=== PATIENT | female | born 2000 | race Two or more races ===

== ENCOUNTER 2022-11-28 02:15 | Outpatient (CLI) | payer OTHER ==
[2022-11-28] MEDS ORDERED: PRENATAL TABLE1 EAC4 PO (02:27)
== END 2022-11-28 08:36 | disposition home or self-care (01) ==
LOC: OBS/DEL 02:15
PROVIDERS: ATTEND Obstetrics & Gynecology
DX: O46.8X2 Other antepartum hemorrhage, second trimester (principal); Z3A.21 21 weeks gestation of pregnancy

== ENCOUNTER 2023-01-26 18:20 | Outpatient (CLI) | payer OTHER ==
[~2023-01-26 18:20] MED LIST: PRENATAL TABLE1 EAC4 PO
== END 2023-01-27 13:59 | disposition home or self-care (01) ==
LOC: OBS/DEL 18:20
PROVIDERS: ATTEND Obstetrics & Gynecology
DX: O26.893 Other specified pregnancy related conditions, third trimester (principal); O99.013 Anemia complicating pregnancy, third trimester; Z3A.29 29 weeks gestation of pregnancy; Z20.822 Contact with and (suspected) exposure to COVID-19

== ENCOUNTER 2023-03-01 14:36 | Outpatient (CLI) | payer OTHER | END 2023-03-01 16:57 | disposition home or self-care (01) | LOC: PRENATAL 14:36 | PROVIDERS: ATTEND Obstetrics & Gynecology Maternal & Fetal Medicine | DX: O26.849 Uterine size-date discrepancy, unspecified trimester (principal); O14.90 Unspecified pre-eclampsia, unspecified trimester; O36.5990 Maternal care for other known or suspected poor fetal growth, unspecified trimester, not applicable or unspecified; Z3A.34 34 weeks gestation of pregnancy ==

== ENCOUNTER 2023-03-12 18:01 | Outpatient (CLI) | payer OTHER ==
[2023-03-12 18:38] LABS: PH,URINE 6.5 (5.0-8.0); URINE APPEARANCE Clear; URINE BILIRRUBIN Negative (NEGATIVE); URINE BLOOD Negative; URINE COLOR Yellow; URINE LEUKOCYTE Trace; URINE NITRATE Negative; URINE PROTEIN Trace (NEGATIVE)
[2023-03-12 18:39] LABS: HEMOGLOBIN 10.6 g/dL (12.0-15.00); MEAN CELL VOLUME 84.3 fL (80.00-100.00); MEAN CORPUSCULAR HEMOGLOBIN 27.9 pg (27.00-32.0); MEAN CORPUSCULAR HGB CONC 33.1 g/dl (32.0-36.0); PLATELET COUNT 416 K/uL (150-450); RED CELL DISTRIBUTION WIDTH 14.5 % (11.5-14.5)
[2023-03-12 18:41] LABS: URINE BACTERIA 545.4 uL (0.0-1933); URINE EPITHELIAL CELLS 17.9 uL (0.0-38.8); URINE RBC 2.8 uL (0.0-20.8); URINE WBC 47.4 uL (0.0-23.2)
[2023-03-12 18:45] LABS: URINE GLUCOSE 500 MG/DL (NEGATIVE)
== END 2023-03-13 15:12 | disposition home or self-care (01) ==
LOC: OBS/DEL 18:01
PROVIDERS: ATTEND Obstetrics & Gynecology
DX: O23.33 Infections of other parts of urinary tract in pregnancy, third trimester (principal); N39.0 Urinary tract infection, site not specified; Z3A.36 36 weeks gestation of pregnancy; Z20.822 Contact with and (suspected) exposure to COVID-19

== ENCOUNTER 2023-04-01 18:23 | Inpatient (IN) | payer OTHER ==
[~2023-04-01] VITALS: Ht 154.9 cm; Wt 54.0 kg
[2023-04-01 19:17] LABS: URINE APPEARANCE Clear; URINE BILIRRUBIN Negative (NEGATIVE); URINE BLOOD Negative; URINE COLOR Yellow; URINE GLUCOSE Negative (NEGATIVE); URINE LEUKOCYTE Negative; URINE NITRATE Negative; URINE PROTEIN Negative (NEGATIVE); URINE UROBILINOGEN 0.2 E.U./dl
[2023-04-01 19:18] LABS: HEMATOCRIT 32.3 % (36.0-45.00); HEMOGLOBIN 10.6 g/dL (12.0-15.00); MEAN CELL VOLUME 83.7 fL (80.00-100.00); MEAN CORPUSCULAR HEMOGLOBIN 27.5 pg (27.00-32.0); MEAN CORPUSCULAR HGB CONC 32.8 g/dl (32.0-36.0); PLATELET COUNT 394 K/uL (150-450); RED BLOOD COUNT 3.86 M/uL (4.00-6.00)
[2023-04-01 19:20] LABS: URINE BACTERIA 248.1 uL (0.0-1933); URINE EPITHELIAL CELLS 17.6 uL (0.0-38.8); URINE WBC 12.6 uL (0.0-23.2)
[2023-04-01 19:24] LABS: URINE RBC 0.5 uL (0.0-20.8)
[2023-04-02 06:51] LABS: HEMATOCRIT 31.3 % (36.0-45.00); MEAN CELL VOLUME 85.1 fL (80.00-100.00); MEAN CORPUSCULAR HGB CONC 33.5 g/dl (32.0-36.0); PLATELET COUNT 365 K/uL (150-450); RED BLOOD COUNT 3.67 M/uL (4.00-6.00); RED CELL DISTRIBUTION WIDTH 14.5 % (11.5-14.5)
[2023-04-02 07:18] LABS: HEMOGLOBIN 10.5 g/dL (12.0-15.00); MEAN CORPUSCULAR HEMOGLOBIN 28.6 pg (27.00-32.0)
== END 2023-04-04 12:29 | disposition home or self-care (01) | DRG 807 ==
LOC: OBS/DEL 18:23 → LDR 22:10 → OB/GYN 22:10
PROVIDERS: ADMIT Obstetrics & Gynecology; ATTEND Obstetrics & Gynecology
PROC: 4A1HXCZ Monitoring of Products of Conception, Cardiac Rate, External Approach (ICD-10-PCS; 2023-04-01)
PROC: 10E0XZZ Delivery of Products of Conception, External Approach (ICD-10-PCS; principal; 2023-04-02)
DX: O80 Encounter for full-term uncomplicated delivery (principal); Z37.0 Single live birth; Z3A.38 38 weeks gestation of pregnancy; Z20.822 Contact with and (suspected) exposure to COVID-19